=== PATIENT | male | born 1955 | race Caucasian/White ===

== ENCOUNTER 2017-09-05 13:23 | Emergency (ER) | payer OTHER, BC ==
[2017-09-05] MEDS: ACETAMINOPHEN 500 MG TAB PO (16:06)
[2017-09-05] MEDS: TETRACAINE 0.5% 4 ML OPH LEFT EYE (16:18)
== END 2017-09-05 18:29 | disposition home or self-care (01) ==
LOC: FTE 13:23
DX: S05.02XA Injury of conjunctiva and corneal abrasion without foreign body, left eye, initial encounter (principal); I10 Essential (primary) hypertension; W22.8XXA Striking against or struck by other objects, initial encounter; Y92.9 Unspecified place or not applicable
CPT/HCPCS: 76536; 99284-25

== ENCOUNTER 2018-05-21 12:03 | Emergency (ER) | payer OTHER | END 2018-05-21 13:37 | disposition home or self-care (01) | LOC: FTE 12:03 | DX: M10.071 Idiopathic gout, right ankle and foot (principal); I10 Essential (primary) hypertension | CPT/HCPCS: 99283; Z7502 ==

== ENCOUNTER 2018-05-27 20:20 | Emergency (ER) | payer OTHER ==
[2018-05-28 00:12] LABS: ADD MAN DIFF? NO
[2018-05-28] MEDS: SOD CHLORIDE 0.9% 1,000 ML IV (00:13)
[2018-05-28 00:14] LABS: BASOPHIL # 0.1 10^3/ul (0.0-0.1); BASOPHILS % 0.3 % (0.0-2.0); HEMATOCRIT 52.8 % (42.0-52.0); HEMOGLOBIN 18.2 g/dl (14.0-18.0); LYMPHOCYTES # 1.1 10^3/ul (0.8-2.9); LYMPHOCYTES % 5.6 % (15.0-51.0); MEAN CORPUSCULAR HGB CONC 34.5 g/dl (32.0-37.0); MEAN CORPUSCULAR VOLUME 89.8 fl (82.0-101.0); MEAN PLATELET VOLUME 10.3 fl (7.4-10.4); MONOCYTE # 1.5 10^3/ul (0.3-0.9); MONOCYTES % 7.5 % (0.0-11.0); NEUTROPHIL # 17.1 10^3/ul (1.6-7.5); PLATELET COUNT 261 10^3/UL (140-415); RED BLOOD COUNT 5.88 10^6/ul (4.70-6.10)
[2018-05-28 00:14] LABS: WHITE BLOOD COUNT 19.8 10^3/ul (4.8-10.8)
[2018-05-28] MEDS: morphine 4 MG/ML VIAL IV (00:27)
[2018-05-28 00:44] LABS: ALANINE AMINOTRANSFERASE 15 IU/L (13-69); ALBUMIN 4.1 g/dl (3.3-4.9); ALBUMIN/GLOBULIN RATIO 0.93; ALKALINE PHOSPHATASE 98 IU/L (42-121); ANION GAP 20 (5-13); ASPARTATE AMINO TRANSFERASE 25 IU/L (15-46); BILIRUBIN,INDIRECT 0.6 mg/dl (0-1.1); BILIRUBIN,TOTAL 0.6 mg/dl (0.2-1.3); BLOOD UREA NITROGEN 40 mg/dl (7-20); CALCIUM 9.9 mg/dl (8.4-10.2); CARBON DIOXIDE 25 mmol/L (21-31); CHLORIDE 94 mmol/L (97-110); CREATININE 3.28 mg/dl (0.61-1.24); Estimated GFR 19 mL/min (>60); GLUCOSE 161 mg/dl (70-220); LIPASE 27 U/L (23-300); POTASSIUM 4.1 mmol/L (3.5-5.1); SODIUM 139 mmol/L (135-144); TOTAL PROTEIN 8.5 g/dl (6.1-8.1)
[2018-05-28] MEDS: SODIUM CHLORIDE 0.9% 1L BAG IV* (01:34)
[2018-05-28] MEDS: PIPER-TAZO 3.375 GM IV (PMX) 100 ML IVPB (01:34)
[2018-05-28 01:58] LABS: ADD UMIC YES; UR ASCORBIC ACID NEGATIVE (NEGATIVE); UR BACTERIA FEW /HPF (NONE SEEN); UR BILIRUBIN (Dip) NEGATIVE (NEGATIVE); UR BLOOD (Dip) 2+ mg/dL (NEGATIVE); UR CLARITY CLOUDY (CLEAR); UR COLOR AMBER (YELLOW); UR GLUCOSE (Dip) NEGATIVE (NEGATIVE); UR KETONES (Dip) NEGATIVE (NEGATIVE); UR LEUKOCYTE ESTERASE (Dip) NEGATIVE Leu/ul (NEGATIVE); UR MUCUS MODERATE /HPF (NONE SEEN); UR NITRITE (Dip) NEGATIVE (NEGATIVE); UR RBC 25 /HPF (0-5); UR SPECIFIC GRAVITY (Dip) 1.025 (1.003-1.030); UR TOTAL PROTEIN (Dip) 1+ mg/dl (NEGATIVE); UR UROBILINOGEN (Dip) NEGATIVE (NEGATIVE); UR WBC 13 /HPF (0-5)
[2018-05-28 02:02] LABS: LACTIC ACID 3.8 mmol/L (0.5-2.0)
== END 2018-05-28 06:06 | disposition short-term general hospital (02) ==
LOC: E/R 20:20
DX: A09 Infectious gastroenteritis and colitis, unspecified (principal); R65.20 Severe sepsis without septic shock; N17.9 Acute kidney failure, unspecified; E86.0 Dehydration; A41.9 Sepsis, unspecified organism; I10 Essential (primary) hypertension
CPT/HCPCS: 36415; 74176; 80053; 81001; 83605; 83690; 85025; 87040; 87086; 96374; 96375; 99291-25